=== PATIENT | male | born 1985 | race African-American/Black ===

== ENCOUNTER 2016-06-25 21:27 | Emergency (ER) | payer OTHER ==
[2016-06-25] MEDS ORDERED: DIPHENOX/ATROPINE 2.5/0.025 MG TABLET PO STA (21:48)
[2016-06-25] MEDS ORDERED: ONDANSETRON 4 MG/2 ML VIAL IM STA (21:48)
[2016-06-25] MEDS ORDERED: ACETAMINOPHEN 325 MG TABLET PO STA (21:48)
[2016-06-25] MEDS ORDERED: MAG HYDROX/AL HYDROX/SIMETH 30 ML UDC PO STA (21:48)
[2016-06-25] MEDS ORDERED: MAG HYDROX/AL HYDROX/SIMETH 30 ML UDC ONE (21:55)
[2016-06-25] MEDS ORDERED: DIPHENOX/ATROPINE 2.5/0.025 MG TABLET PO ONE (21:55)
[2016-06-25] MEDS ORDERED: ACETAMINOPHEN 325 MG TABLET PO ONE (21:55)
[2016-06-25] MEDS ORDERED: ONDANSETRON 4 MG/2 ML VIAL ONE (21:55)
[2016-06-25] MEDS ORDERED: ONDANSETRON ODT 4 MG Prepack 2 TL PRN (22:45)
[2016-06-25] MEDS ORDERED: ONDANSETRON ODT 4 MG Prepack 2 TL ONE (22:47)
== END 2016-06-25 22:55 | disposition home or self-care (01) ==
DX: R11.2 Nausea with vomiting, unspecified (principal); R19.7 Diarrhea, unspecified; R10.13 Epigastric pain; F17.200 Nicotine dependence, unspecified, uncomplicated
CPT/HCPCS: 96372; 99283; 99284; A9270

== ENCOUNTER 2017-05-03 13:45 | Outpatient (CLI) | payer OTHER | END 2017-05-03 13:46 | disposition home or self-care (01) | LOC: SC 13:45 | PROVIDERS: ATTEND Internal Medicine Pulmonary Disease | DX: G47.30 Sleep apnea, unspecified (principal); G47.10 Hypersomnia, unspecified; R06.83 Snoring | CPT/HCPCS: 99203; 99212 ==

== ENCOUNTER 2017-05-23 09:40 | Emergency (ER) | payer OTHER ==
[2017-05-23] MEDS ORDERED: KETOROLAC 60 MG/2 ML VIAL IM STA (10:53)
--- NOTE | 2017-05-23 10:56 | ED Physician Documentation ---
PD HPI HEADACHE - Stated complaint Stated Complaint: HEADACHE/HEAD PX - Chief complaint Chief Complaint: Neuro - History obtained from History obtained from: Patient - History of Present Illness Timing - onset: How many days ago (10) Timing - onset during: Rest Timing - duration: Days (10) Timing - details: Gradual onset, Still present Location: Front Quality: Throbbing Associated symptoms: Nausea, Eye pain. No: Fever, Stiff neck, Vomiting, Weakness, Numbness, Syncope, Seizure, Vision changes Improved by: Rest, Dark room Worsened by: Light, Moving, Other (bending over) Contributing factors: No: Anticoagulated Similar symptoms before: Diagnosis (migriane) Recently seen: Clinic - Additional information Additional information: 32-year-old male with history of migraine as a teenager has developed a headache that is different from what he has had previously with his migraines. He has developed this headache about 10 days ago is behind his eyes and is worse with stooping or bending over. The pain has been waxing and waning he has had a bit of nausea he has not had any vomiting he did go and see his primary care doctor and was placed on some Flonase. He does not feel that this helped much, the pain is an 8/10 and he has not been able to sleep. Review of Systems Constitutional: denies: Fever, Fatigue, Sweats Eyes: reports: Photophobia. denies: Loss of vision, Decreased vision Ears: denies: Ear pain Nose: reports: Sinus pressure / pain. denies: Rhinorrhea / runny nose, Congestion Throat: denies: Dental pain / toothache, Sore throat Cardiac: denies: Chest pain / pressure Respiratory: reports: Cough. denies: Dyspnea GI: denies: Abdominal Pain, Abdominal Swelling, Nausea, Vomiting, Constipation, Diarrhea : denies: Dysuria, Frequency Skin: denies: Rash Musculoskeletal: denies: Neck pain, Back pain, Extremity pain Neurologic: denies: Generalized weakness, Focal weakness, Numbness PD PAST MEDICAL HISTORY - Past Medical History Cardiovascular: None Respiratory: None Neuro: None Endocrine/Autoimmune: None GI: None - Past Surgical History Past Surgical History: No - Present Medications Home Medications: Ambulatory Orders Medication Instructions Recorded Confirmed Fluticasone [Flonase] 05/23/17 Pseudoephedrine [Sudafed] 05/23/17 - Allergies Allergies/Adverse Reactions: Allergies Allergy/AdvReac Type Severity Reaction Status Date / Time No Known Drug Allergies Allergy Verified 05/23/17 09:46 - Social History Does the pt smoke?: Yes Smoking Status: Current every day smoker Does the pt drink ETOH?: Yes Does the pt have substance abuse?: No - Immunizations Immunizations are current?: Yes - POLST Patient has POLST: No PD ED PE NORMAL - Vitals Vital signs reviewed: Yes (hypertensive mild ) - General General: Alert and oriented X 3, No acute distress, Well developed/nourished - HEENT HEENT: Atraumatic, PERRL, EOMI, Pharynx benign, Other (minimal inflamation in the left TM right is clear) - Neck Neck: Supple, no meningeal sign, No bony TTP - Cardiac Cardiac: RRR, No murmur - Respiratory Respiratory: No respiratory distress, Clear bilaterally - Abdomen Abdomen: Soft, Non tender - Back Back: No CVA TTP, No spinal TTP - Derm Derm: Normal color, Warm and dry, No rash - Extremities Extremities: No deformity, No edema - Neuro Neuro: Alert and oriented X 3, 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, No motor deficit, No sensory deficit, Normal speech Eye Opening: Spontaneous Motor: Obeys Commands Verbal: Oriented GCS Score: 15 - Psych Psych: Normal mood, Normal affect Results - Vitals Vitals: Vital Signs - 24 hr 05/23/17 09:44 Temperature 37.2 C Heart Rate 70 Respiratory 16 Rate Blood Pressure 164/96 H O2 Saturation 98 Oxygen O2 Source Room air - Rads (name of study) CT sinuses Radiology: Prelim report reviewed (Impression: Normal sinus CT no sinusitis.), EMP read indepedently, See rad report PD MEDICAL DECISION MAKING - ED course Complexity details: reviewed results, re-evaluated patient, considered differential, d/w patient ED course: 32-year-old male with a 8 day history of headache hasAnd a CT scan of the sinuses without evidence of sinusitis. He is treated for resistant migraine with saline dexamethasone Toradol Benadryl and Compazine Departure - Departure Disposition: 01 Home, Self Care Clinical Impression: Migraine Qualifiers: Migraine type: chronic without aura Status migrainosus presence: with status migrainosus Intractability: not intractable Qualified Code(s): G43.701 - Chronic migraine without aura, not intractable, with status migrainosus Condition: Stable Instructions: ED Headache Migraine Follow-Up: LIZZ NEWELL MD [Primary Care Provider] - Comments: Today in the Emergency Department your blood pressure was elevated. This can happen from the stress of the visit itself, from a current illness or circumstance or from uncontrolled hypertension. If you take blood pressure medications take your usual mediations, have your blood pressure re-checked in an appropriate setting and follow up any elevation with your primary care doctor.
[2017-05-23] MEDS ORDERED: SODIUM CHLORIDE 0.9% 1,000 ML IV ONE (12:01)
[2017-05-23] MEDS ORDERED: diphenhydrAMINE INJ 50 MG/ML VIAL IVP STA (12:01)
[2017-05-23] MEDS ORDERED: PROCHLORPERAZINE 10 MG/2 ML VIAL IVP STA (12:01)
[2017-05-23] MEDS ORDERED: DEXAMETHASONE 10 MG/ML VIAL IVP STA (12:02)
--- NOTE | 2017-05-23 12:27 | CT Report ---
EXAM: CT SINUS EXAM DATE: 05/23/2017 11:55 AM. HISTORY: Headaches, denies injury COMPARISONS: None. TECHNIQUE: Routine multi-axial CT imaging performed through the sinuses. Iodinated IV contrast: None. Reconstructions: Coronal. In accordance with CT protocol optimization, one or more of the following dose reduction techniques w ere utilized for this exam: automated exposure control, adjustment of mA and/or KV based on patient s ize, or use of iterative reconstructive technique. FINDINGS: RIGHT Frontal: Normal. Ethmoid: Normal. Maxillary: Normal. Sphenoid: Normal. Drainage Pathways: The frontal recess, ostiomeatal complex and sphenoethmoidal recess are patent and normal. LEFT Frontal: Normal. Ethmoid: Normal. Maxillary: Normal. Sphenoid: Normal. Drainage Pathways: The frontal recess, ostiomeatal complex and sphenoethmoidal recess are patent and normal. Nasal Cavity: Normal. No mass or significant anatomic abnormality evident. Osseous Structures: Unremarkable. Orbits: Unremarkable. Other: CT imaging in bone algorithm reconstructions only provided. Diagnostic evaluation of the intra cranial contents is very limited. IMPRESSION: Normal Sinus CT. No sinusitis. [facility] Referring Provider Line: [phone] SITE ID: [id number]
[2017-05-23 13:25] VITALS: BP 153/113
== END 2017-05-23 13:31 | disposition home or self-care (01) ==
LOC: ED 09:40
DX: G43.701 Chronic migraine without aura, not intractable, with status migrainosus (principal); F17.200 Nicotine dependence, unspecified, uncomplicated
CPT/HCPCS: 70486; 96361; 96372; 96374; 99283; 99284

== ENCOUNTER 2017-06-22 19:23 | Outpatient (CLI) | payer OTHER | END 2017-06-22 19:24 | disposition home or self-care (01) | LOC: SC 19:23 | PROVIDERS: ATTEND Internal Medicine Pulmonary Disease | DX: G47.33 Obstructive sleep apnea (adult) (pediatric) (principal); G47.61 Periodic limb movement disorder | CPT/HCPCS: 95810 ==

== ENCOUNTER 2017-06-23 19:18 | Emergency (ER) | payer OTHER ==
--- NOTE | 2017-06-23 20:57 | ED Physician Documentation ---
PD HPI LOWER EXT INJURY - Stated complaint Stated Complaint: RT FOOT INJ - Chief complaint Chief Complaint: Ext Problem - History obtained from History obtained from: Patient - History of Present Illness PD HPI LOW EXT INJURY LOCATION: Right, Lower leg Type of injury: Other (pushing injury) Where injury occurred: [place] Timing - onset: Today Timing - details: Abrupt onset Worsened by: Moving, Palpating Similar symptoms before: Has not had sx before Recently seen: Not recently seen - Additional information Additional information: Patient is a 32 year old male with no significant past medical history who is presenting to the emergency deparment for right calf and ankle pain. Patient was playing basketball and was going to push off and he felt a pop and states that it felt like some one landed on him but no one was around. Review of Systems Constitutional: denies: Fever, Chills Eyes: reports: Reviewed and negative Ears: reports: Reviewed and negative Nose: reports: Reviewed and negative Throat: reports: Reviewed and negative Cardiac: reports: Reviewed and negative Respiratory: reports: Reviewed and negative GI: reports: Reviewed and negative : reports: Reviewed and negative Musculoskeletal: reports: Extremity pain, Joint pain, Extremity swelling, Joint swelling Neurologic: reports: Focal weakness Immunocompromised: denies: Immunocompromised PD PAST MEDICAL HISTORY - Past Medical History Cardiovascular: None Respiratory: None Neuro: None Endocrine/Autoimmune: None GI: None - Past Surgical History Past Surgical History: No - Present Medications Home Medications: Ambulatory Orders Medication Instructions Recorded Confirmed No Known Home Medications [No 06/23/17 06/23/17 Known Home Medications] - Allergies Allergies/Adverse Reactions: Allergies Allergy/AdvReac Type Severity Reaction Status Date / Time No Known Drug Allergies Allergy Verified 06/23/17 19:43 - Social History Does the pt smoke?: Yes Smoking Status: Current some day smoker Does the pt drink ETOH?: Yes Does the pt have substance abuse?: No - Immunizations Immunizations are current?: Yes - POLST Patient has POLST: No PD ED PE NORMAL - General General: Alert and oriented X 3 - HEENT HEENT: Atraumatic - Cardiac Cardiac: RRR - Respiratory Respiratory: No respiratory distress - Abdomen Abdomen: Non distended - Derm Derm: Normal color, No rash - Neuro Neuro: Alert and oriented X 3 Eye Opening: Spontaneous PD ED PE EXPANDED - Extremities Extremities: Right ankle (no bony tenderness), Right foot (decreased ability to extend right foot. tenderness to palpation of inferior gastrocnemius muscle) Results - Vitals Vitals: Vital Signs - 24 hr 06/23/17 19:41 Temperature 36.8 C Heart Rate 106 H Respiratory 16 Rate Blood Pressure 199/109 H O2 Saturation 98 Oxygen O2 Source Room air PD MEDICAL DECISION MAKING - ED course Complexity details: reviewed old records, reviewed results, re-evaluated patient , considered differential, d/w patient ED course: Patient was seen and examined at bedside. Patient's findings were consistent with ruptured achilles tendon. Patient was negative for [place] ankle rules and no imaging was indicated. patient stated that he did not need pain medication. patinet required no further work up and was stable for discharge [facility] outpatient follow up. Departure - Departure Disposition: 01 Home, Self Care Clinical Impression: Achilles tendon rupture Condition: Good Instructions: ED Tendon Rupture Achilles Follow-Up: primary,care provider [Other] - Within 1 week Comments: Your symptoms today are due to Achilles tendon rupture. You will need to be in a boot and ambulate with crutches. You will need to follow up with your doctor for mri and surgical follow up. You should continue to ice and elevate your leg as much as possible. Forms: Activity restrictions
[2017-06-23 21:12] VITALS: BP 154/94
== END 2017-06-23 21:10 | disposition home or self-care (01) ==
LOC: ED 19:18
DX: S86.011A Strain of right Achilles tendon, initial encounter (principal); X50.9XXA Other and unspecified overexertion or strenuous movements or postures, initial encounter; Y93.67 Activity, basketball; Y92.830 Public park as the place of occurrence of the external cause; F17.200 Nicotine dependence, unspecified, uncomplicated
CPT/HCPCS: 99283

== ENCOUNTER 2017-08-17 13:57 | Outpatient (CLI) | payer OTHER | END 2017-08-17 13:58 | disposition home or self-care (01) | LOC: SC 13:57 | PROVIDERS: ATTEND Nurse Practitioner Family | DX: G47.33 Obstructive sleep apnea (adult) (pediatric) (principal) | CPT/HCPCS: 99214 ==